=== PATIENT | male | born 1940 | race Caucasian/White ===

== ENCOUNTER 2017-04-22 21:40 | Emergency (ER) | payer MEDICARE ==
[2017-04-22 21:51] VITALS: BP 146/64
--- NOTE | 2017-04-22 22:04 | UC ---
Upper Extremity HPI - HPI Summary HPI Summary: 76 yo M states he fell 5 feet out of a bucket of a tractor while trimming an apple tree and the branch knocked him out of the bucket. States he thinks he struck the left hand on the bucket and then landed on an outstretched hand. States he also landed on his right shoulder and right hip. Denies LOC, no neck pain, no back pain. Is on ASA, not on blood thinners. States it all happened approx 4pm. States he came for medical attention because the hand has continued to swell and he feels something hard on the top of his hand. - History of Current Complaint Chief Complaint: UCUpperExtremity Stated Complaint: LEFT HAND SWELLING Time Seen by Provider: 04/22/17 21:46 Hx Obtained From: Patient Onset/Duration: Sudden Onset, Lasting Hours, Still Present Severity Initially: Moderate Severity Currently: Moderate Pain Intensity: 5 Pain Scale Used: 0-10 Numeric Location Of Pain: Is Discrete @ - left hand and wrist Character: Dull, Aching Aggravating Factor(s): Movement Alleviating Factor(s): Nothing Associated Signs And Symptoms: Positive: Swelling, Bruising Related History: Dominant Hand Right - Allergies/Home Medications Allergies/Adverse Reactions: Allergies Allergy/AdvReac Type Severity Reaction Status Date / Time No Known Allergies Allergy Verified 04/22/17 21:51 PMH/Surg Hx/FS Hx/Imm Hx Endocrine History Of: Reports: Diabetes, Hypothyroidism Cardiovascular History Of: Denies: Cardiac Disorders, Hypertension Respiratory History Of: Denies: Asthma - Surgical History Surgical History: Yes Surgery Procedure, Year, and Place: Right [place]'s Tendon, 2013. Cholecystectomy - Family History Known Family History: Positive: Diabetes Negative: Cardiac Disease, Hypertension - Social History Occupation: Employed Full-time Lives: With Family Alcohol Use: Rare Substance Use Type: None Smoking Status (MU): Never Smoked Tobacco - Immunization History Most Recent Influenza Vaccination: Not the 2016/2016 Season Review of Systems Constitutional: Negative Skin: Bruising, Other - swelling left hand Eyes: Negative ENT: Negative Respiratory: Negative Cardiovascular: Negative Gastrointestinal: Negative Genitourinary: Negative Motor: Negative Neurovascular: Negative Musculoskeletal: Arthralgia Neurological: Negative Psychological: Negative All Other Systems Reviewed And Are Negative: Yes Physical Exam Triage Information Reviewed: Yes Appearance: Well-Appearing, Well-Nourished, Pain Distress Vital Signs: Initial Vital Signs Temp 98.6 F 04/22/17 21:45 Pulse 103 04/22/17 21:45 Resp 16 04/22/17 21:45 BP 146/64 04/22/17 21:45 Pulse Ox 97 04/22/17 21:45 Vital Signs Reviewed: Yes Eyes: Positive: Conjunctiva Clear ENT: Positive: Normal ENT inspection Neck: Positive: Supple Respiratory: Positive: No respiratory distress Cardiovascular: Positive: RRR, Pulses Normal, Brisk Capillary Refill Musculoskeletal: Positive: Strength Intact, ROM Intact, Other: - swelling and bruising left hand, dorsum Neurological: Positive: Alert, Muscle Tone Normal Psychological Exam: Normal Skin: Positive: Other - bruising dorsum left hand Re-Evaluation - Re-Evaluation First Eval Re-Evaluation Time: 22:35 - pain improved with ice, informed of xray results Change: Improved Upper Extremity Course/Dx - Course Course Of Treatment: xray left hand neg. xray left wrist neg - Differential Dx/Diagnosis Differential Diagnosis/HQI/PQRI: Contusion, Fracture (Closed), Strain, Sprain Provider Diagnoses: contusion left hand. elevated BP without dx of HTN Discharge - Discharge Plan Condition: Stable Disposition: HOME Patient Education Materials: Contusion in Adults (ED) Referrals: Koko Mijares MD [Medical Doctor] - 2 Days Agusto Gates MD [Primary Care Provider] - 2 Days
--- NOTE | 2017-04-22 22:28 | RAD ---
HISTORY: Fall, left hand and wrist pain and trauma COMPARISONS: None VIEWS: 8, Frontal, lateral, and oblique views of the left hand and of the left wrist, and scaphoid deviation views of the left wrist FINDINGS: BONE DENSITY: There is diffuse osteopenia. BONES: There is no displaced fracture. JOINTS: There is osteoarthritis of the scaphoid-trapezium articulation, the first CMC joint, and of the interphalangeal joints. ALIGNMENT: There is no dislocation. SOFT TISSUES: Unremarkable. OTHER FINDINGS: None. 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 NO ACUTE OSSEOUS INJURY. IF SYMPTOMS PERSIST, RECOMMEND REPEAT IMAGING.
== END 2017-04-22 22:50 | disposition home or self-care (01) ==
LOC: UCCORT 21:40
DX: S60.222A Contusion of left hand, initial encounter (principal); W17.89XA Other fall from one level to another, initial encounter; R03.0 Elevated blood-pressure reading, without diagnosis of hypertension
CPT/HCPCS: 99213; G0463

== ENCOUNTER 2017-08-21 08:19 | Emergency (ER) | payer MEDICARE ==
[2017-08-21 08:42] VITALS: BP 151/92
--- NOTE | 2017-08-21 08:52 | UC ---
Throat Pain/Nasal Beau HPI - HPI Summary HPI Summary: SINUS PAIN AND PRESSURE X 3 WEEKS + NASAL CONGESTION , PND COUGH, NO FEVER, + CHILLS - History of Current Complaint Chief Complaint: UCRespiratory Stated Complaint: EARS SINUS SORE THROAT Time Seen by Provider: 08/21/17 08:46 Hx Obtained From: Patient Onset/Duration: Gradual Onset, Lasting Weeks - 3 Severity: Moderate Associated Signs & Symptoms: Positive: Sinus Discomfort, Nasal Discharge. Negative: Dysphagia, Wheezing, Hoarseness, Fever, Vomiting, Rash - Allergies/Home Medications Allergies/Adverse Reactions: Allergies Allergy/AdvReac Type Severity Reaction Status Date / Time No Known Allergies Allergy Verified 08/21/17 08:29 Home Medications: Home Medications [id number] [Night Time Multi-Symptom] 1 cap PO PRN 08/21/17 [History] PMH/Surg Hx/FS Hx/Imm Hx Endocrine History: Diabetes, Thyroid Disease - Surgical History Surgical History: Yes Surgery Procedure, Year, and Place: Right [place]'s Tendon, 2013. Cholecystectomy - Family History Known Family History: Positive: Diabetes Negative: Cardiac Disease, Hypertension - Social History Alcohol Use: Rare Substance Use Type: None Smoking Status (MU): Never Smoked Tobacco - Immunization History Most Recent Influenza Vaccination: NOTYET IN 2006 Review of Systems Constitutional: Negative Skin: Negative Eyes: Negative ENT: Sore Throat, Ear Ache, Nasal Discharge Respiratory: Cough Cardiovascular: Negative Gastrointestinal: Negative Is Patient Immunocompromised?: No All Other Systems Reviewed And Are Negative: Yes Physical Exam Triage Information Reviewed: Yes Appearance: Well-Appearing, No Pain Distress, Well-Nourished Vital Signs: Initial Vital Signs Temp 97.4 F 08/21/17 08:31 Pulse 70 08/21/17 08:31 Resp 20 08/21/17 08:31 BP 151/92 08/21/17 08:31 Pulse Ox 98 08/21/17 08:31 Vital Signs Reviewed: Yes Eyes: Positive: Conjunctiva Clear ENT: Positive: Normal ENT inspection, Hearing grossly normal, Pharyngeal erythema, Nasal drainage, TMs normal. Negative: Nasal congestion, TM bulging, TM dull, TM red Dental Exam: Normal Neck: Positive: Supple, Nontender, No Lymphadenopathy Respiratory: Positive: Chest non-tender, Lungs clear, Normal breath sounds Cardiovascular: Positive: RRR, No Murmur, Pulses Normal Skin Exam: Normal Throat Pain/Nasal Course/Dx - Course Course Of Treatment: CONT. TO MONITOR YOUR BP DAILY. FOLLOW UP WITH YOUR PCP IN ONE WEEK - Differential Dx/Diagnosis Provider Diagnoses: SINUSITIS. ELEVATED BP Discharge - Discharge Plan Condition: Stable Disposition: HOME Prescriptions: Amoxicillin/Clavulanate TAB* [Augmentin TAB 875*] 875 mg PO BID #20 tab Fluticasone Propionate (Nasal) [Flonase Allergy Relief] 50 mcg NA DAILY #1 bottle Patient Education Materials: Sinusitis (ED) Referrals: Agusto Gates MD [Primary Care Provider] - If Needed
== END 2017-08-21 09:02 | disposition home or self-care (01) ==
LOC: UCCORT 08:19
DX: J32.9 Chronic sinusitis, unspecified (principal); R03.0 Elevated blood-pressure reading, without diagnosis of hypertension; E11.9 Type 2 diabetes mellitus without complications; E07.9 Disorder of thyroid, unspecified; Z90.49 Acquired absence of other specified parts of digestive tract
CPT/HCPCS: 99211; G0463

== ENCOUNTER 2018-11-30 14:24 | Emergency (ER) | payer MEDICARE, OTHER ==
--- NOTE | 2018-11-30 15:03 | UC ---
Respiratory Complaint HPI - HPI Summary HPI Summary: 77 yo male presents with sore throat and productive cough for the last 10 days - getting progressively worse. He has been coughing up green phlegm. Today noticed some small streaks of blood in some of his mucus. Has been taking mucinex and an OTC cold and flu medication with no relief. Of note, he travels "all over the world" for his job and has been to multiple countries recently. Denies fever, chills, sinus symptoms, SOB, chest pain, n/v. - History of Current Complaint Stated Complaint: COUGHING UP BLOOD,CHEST CONGESTION Time Seen by Provider: 11/30/18 15:03 Hx Obtained From: Patient Onset/Duration: Gradual Onset Severity Initially: Moderate Severity Currently: Moderate Pain Intensity: 7 Pain Scale Used: 0-10 Numeric Character: Cough: Productive - Allergies/Home Medications Allergies/Adverse Reactions: Allergies Allergy/AdvReac Type Severity Reaction Status Date / Time No Known Allergies Allergy Verified 08/21/17 08:29 Home Medications: Home Medications D-Methorphan/PE/Acetaminophen [Day Time Cold-Flu Liquid] 10 ml PO Q12H 11/30/18 [History Confirmed 11/30/18] Doxylamine/Phenylep/Dm/Aspirin [Opal-[place] Day-Night Tab Eff] 1 each PO ONCE 11/30/18 [History Confirmed 11/30/18] glipiZIDE [Glipizide] 5 mg PO DAILY 11/30/18 [History Confirmed 11/30/18] guaiFENesin [Mucinex] 600 mg PO DAILY 11/30/18 [History Confirmed 11/30/18] PMH/Surg Hx/FS Hx/Imm Hx Endocrine History: Diabetes, Hypothyroidism - Surgical History Surgical History: Yes Surgery Procedure, Year, and Place: Right [place]'s Tendon, 2014. Cholecystectomy - Family History Known Family History: Positive: Diabetes Negative: Cardiac Disease, Hypertension - Social History Occupation: Employed Part-time Lives: With Family Alcohol Use: Rare Substance Use Type: None Smoking Status (MU): Never Smoked Tobacco - Immunization History Most Recent Influenza Vaccination: NOTYET IN 2006 Review of Systems All Other Systems Reviewed And Are Negative: Yes Constitutional: Positive: Negative Skin: Positive: Negative Eyes: Positive: Negative ENT: Positive: Sore Throat Respiratory: Positive: Cough Cardiovascular: Positive: Negative Gastrointestinal: Positive: Negative Neurovascular: Positive: Negative Neurological: Positive: Negative Psychological: Positive: Negative Physical Exam - Summary Physical Exam Summary: GENERAL: NAD. WDWN. No pain distress. SKIN: No rashes, sores, lesions, or open wounds. HEENT: Head: AT/NC Eyes: EOM intact. Conjunctiva clear without inflammation or discharge. Ears: Hearing grossly normal. TMs intact, no bulging, erythema, or edema. Nose: Nasal mucosa pink and moist. NTTP maxillary and frontal sinus. Throat: Posterior oropharynx without exudates, erythema, or tonsillar enlargement. Uvula midline. NECK: Supple. Nontender. No lymphadenopathy. CHEST: Slight decreased air movement at lung bases. No r/r/w. No accessory muscle use. Breathing comfortably and in no distress. CV: RRR. Without m/r/g. Pulses intact. Cap refill <2seconds NEURO: Alert. PSYCH: Age appropriate behavior. Triage Information Reviewed: Yes Vital Signs: Vital Signs: Temp Pulse Resp BP Pulse Ox 97.9 F 82 14 149/87 100 11/30/18 15:08 11/30/18 15:08 11/30/18 15:08 11/30/18 15:08 11/30/18 15:08 Vital Signs Reviewed: Yes Respiratory Course/Dx - Course Course Of Treatment: CXR: IMPRESSION: INTERVAL APPEARANCE OF FAINT PATCHY DENSITY AT THE LATERAL BILATERAL LUNG BASES COULD BE. SEEN IN THE SETTING OF PNEUMONIA, PARTICULARLY ATYPICAL PNEUMONIA. Will treat with doxycycline and prednisone today. - Differential Dx/Diagnosis Provider Diagnosis: Bilateral pneumonia Discharge - Sign-Out/Discharge Documenting (check all that apply): Patient Departure All imaging exams completed and their final reports reviewed: Yes - Discharge Plan Condition: Stable Disposition: HOME Prescriptions: DOXYcycline CAP(*) [DOXYcycline 100MG CAP(*)] 100 mg PO BID #20 cap predniSONE TAB* [Deltasone 20 MG TAB*] 40 mg PO DAILY #10 tab Patient Education Materials: Community Acquired Pneumonia (DC) Referrals: Agusto Gates MD [Primary Care Provider] - Additional Instructions: If you develop a fever, shortness of breath, chest pain, new or worsening symptoms - please call your PCP or go to the ED. Your blood pressure was high at todays visit. Please see your primary provider within 4 weeks for recheck and re-evaluation. Please schedule a follow up appointment with your PCP in 3-4 weeks for a recheck of your pneumonia. - Billing Disposition and Condition Condition: STABLE Disposition: Home
[2018-11-30 15:13] VITALS: BP 149/87
== END 2018-11-30 16:17 | disposition home or self-care (01) ==
LOC: UCCORT 14:24
DX: J18.9 Pneumonia, unspecified organism (principal); E11.9 Type 2 diabetes mellitus without complications
CPT/HCPCS: 71046; 99212; G0463